=== PATIENT | male | born 1985 | race Caucasian/White ===

== ENCOUNTER 2025-02-10 08:48 | Emergency (ER) | payer MEDICAID, SELFPAY ==
--- NOTE | 2025-02-10 09:06 | XR_ITS ---
Examination: PA lateral chest 2 views TECHNIQUE: Upright lateral chest 2 views Exam date and time: February 10, 2025 0916 hours Comparison May 13, 2022 INDICATIONS: Nausea vomiting bodyaches beginning 1:00 AM this morning FINDINGS: Normal heart size. The lungs are clear. Mild osteopenia with mild thoracic dextroscoliosis IMPRESSION: No active disease
--- NOTE | 2025-02-10 09:08 | EKG_ITS ---
[facility] Test Date: 2025-02-10 Pat Name: KIEL TERRY Department: Room: - Gender: Male Medical Record Administrator: : 1985 Requested By: Salbador Amin Order Number: [id number] Reading MD: Salbador Amin Measurements Intervals Godfrey Rate: 106 P: 59 NC: 135 QRS: 70 QRSD: 104 T: 35 QT: 338 QTc: 450 Interpretive Statements SINUS TACHYCARDIA POSSIBLE LATERAL MYOCARDIAL INFARCTION , OF INDETERMINATE AGE [30 ms Q WAVE IN I/aVL/V5/V6] Compared to ECG 05/13/2022 17:27:36 Myocardial infarct finding now present T-wave abnormality no longer present /store/S0/[id number]/[id number].pdf
--- NOTE | 2025-02-10 09:08 | PD.EDURI ---
Upper Respiratory Inf. RME/HPI General Chief Complaint: Flu Like Symptoms Stated Complaint: nausea and vomiting Time Seen by Provider: 02/10/25 09:06 Source: patient Arrival date/time: 02/10/25 08:48 40-year-old male with no known medical history presents to the emergency room with a chief complaint of nausea vomiting, body aches and feeling clammy since 1 AM this morning. Mode of arrival: ambulatory Limitations: no limitations Related Data Previous Rx's ?Medication ?Instructions ?Recorded ibuprofen 600 mg tablet 600 mg PO Q6HR PRN PAIN #40 tabs 07/09/14 ibuprofen 600 mg tablet 600 mg PO Q6H #30 tabs 12/03/19 albuterol sulfate 90 mcg/actuation 1 inh inhalation QID PRN shortness 05/13/22 aerosol inhaler (ProAir HFA) of breath or wheezing #6.7 grams ibuprofen 600 mg tablet (IBU) 600 mg PO QID PRN fever #30 tabs 05/13/22 ondansetron 4 mg disintegrating 4 mg PO Q8H PRN nausea and 05/13/22 tablet vomiting #14 tabs Allergies Allergy/AdvReac Type Severity Reaction Status Date / Time amoxicillin Allergy Severe Vomiting Verified 12/24/23 18:02 hydromorphone Allergy Severe Hives Verified 12/24/23 18:02 Penicillins Allergy Severe Vomiting Verified 12/24/23 18:02 cycolobenzaprine Allergy Uncoded 02/10/25 08:51 Review of Systems Review of Systems Systems Reviewed: All systems reviewed, normal except as documented Constitutional Constitutional: Reports system reviewed and no additional complaints, except as documented, Reports body ache(s), Denies fatigue, Reports fever(s), Denies headache(s) and Reports weakness Eyes Eyes: Reports system reviewed and no additional complaints, except as documented, Denies blurry vision and Denies change in vision ENT Ears, Nose, Mouth, and Throat: Reports system reviewed and no additional complaints, except as documented, Denies otalgia, Denies headache(s), Denies nasal congestion, Denies throat swelling and Denies vertigo Cardiovascular Cardiovascular: Reports system reviewed and no additional complaints, except as documented, Denies chest pain, Denies dyspnea, Denies dyspnea on exertion and Reports rapid heart rate Respiratory Respiratory: Reports system reviewed and no additional complaints, except as documented, Denies chest congestion, Denies cough, Denies dyspnea, Denies dyspnea on exertion and Denies wheezing Gastrointestinal Gastrointestinal: Reports system reviewed and no additional complaints, except as documented, Denies abdominal pain, Denies cramping, Denies nausea and Denies vomiting Genitourinary Genitourinary: Reports system reviewed and no additional complaints, except as documented, Denies dysuria and Denies hematuria Musculoskeletal Musculoskeletal: Reports system reviewed and no additional complaints, except as documented and Denies back pain Integumentary/Breasts Skin/Breast: Reports system reviewed and no additional complaints, except as documented and Denies wounds Neurologic Neurologic: Reports system reviewed and no additional complaints, except as documented, Denies confusion, Denies headache(s), Denies lack of coordination, Denies vertigo and Reports weakness Psychiatric Psychiatric: Reports system reviewed and no additional complaints, except as documented, Denies anxiety, Denies confusion, Denies depression, Denies paranoia, Denies suicidal ideation and Denies tactile hallucinations Endocrine Endocrine: Reports system reviewed and no additional complaints, except as documented and Denies fatigue Hematologic/Lymphatic Hematologic/Lymphatic: Reports system reviewed and no additional complaints, except as documented and Denies lymphadenopathy Allergic/Immunologic Allergic/Immunologic: Reports system reviewed and no additional complaints, except as documented, Denies throat swelling, Denies urticaria and Denies wheezing ED Exam General Limitations: Present no limitations Course Quality Measures none Orders Category Date Time Status Bedside COVID-19 Antigen Test NOW Care 02/10/25 09:06 Active Bedside Influenza A&B Antigen Test NOW Care 02/10/25 09:06 Completed EKG (ED ONLY) *Do not use* NOW Care 02/10/25 09:08 Completed EKG (ED Only) Stat Exams 02/10/25 09:08 Draft XR chest 2V Stat Exams 02/10/25 09:06 Completed B-Type Natriuretic Peptide Stat Lab 02/10/25 09:49 Completed CBC Stat Lab 02/10/25 09:49 Completed CMP [Comprehensive Metabolic Panel] Stat Lab 02/10/25 09:49 Completed Drug Screen,Urine Stat Lab 02/10/25 09:40 Completed Lipase Stat Lab 02/10/25 09:49 Completed Magnesium Stat Lab 02/10/25 09:49 Completed Troponin I Stat Lab 02/10/25 09:49 Completed Urinalysis Stat Lab 02/10/25 09:40 Completed Acetaminophen Tab [Tylenol Tab] Med 02/10/25 09:06 Discontinued 650 mg PO X1 ONE Ondansetron Odt [Zofran Odt] Med 02/10/25 09:06 Discontinued 4 mg PO X1 ONE Vital Signs Vital signs: Vital Signs Temperature 97.7 F 02/10/25 09:13 Pulse Rate 108 H 02/10/25 09:13 Respiratory Rate 18 02/10/25 09:13 Blood Pressure 164/107 H 02/10/25 09:13 Pulse Oximetry (%) 100 02/10/25 09:13 Oxygen Delivery Method Room Air 02/10/25 09:13 O2 saturation within normal limits Procedures -ED EKG Interpretation #1: Date of EK02/10/25 Rate: 106 Interpretation: Reviewed by me EKG Impression: Sinus tachycardia Additional EKG comment: EKG shows sinus tachycardia [address] deviation Upper Respiratory Infection MDM Narrative MDM Narrative:: 40-year-old male with no known medical history presents to the emergency room with a chief complaint of nausea vomiting, body aches and feeling clammy since 1 AM this morning. Patient is hemodynamically stable and in no apparent distress Physical examination shows generalized bodyaches that are a 5 out of 10 throughout his whole body. The patient is also having some nausea and vomiting. The patient denies any chest pain any abdominal pain any fevers. EKG shows sinus tachycardia at [address] deviation CBC CMP troponin were all negative Patient tested positive for influenza A Patient was discharged and educated to follow-up with primary care provider in the next 24 to 48 hours and return to the emergency room for any evidence of worsening signs or symptoms Patient data External records reviewed:: [facility] previous records Clinical information provided by:: patient Social determinants that could affect healthcare access:: none Patient has the following chronic illnesses:: No chronic illness How is presenting disease/condition affected by chronic disease/condition?: no chronic disease Evaluation data The following diagnostics were reviewed and interpreted by me:: lab results and radiology exam(s) Lab and/or radiology exams considered but not ordered:: Labs and radiology exams considered in order Interpretation Summary: Chest [id number]: Normal heart size. The lungs are clear. Mild osteopenia with mild thoracic dextroscoliosis IMPRESSION: No active disease Medications / Prescriptions Medications or Prescriptions considered but not ordered:: Medication given Medication administrations:: Medication Administration History Discontinued Medications Acetaminophen (Acetaminophen 325 Mg Tablet) 650 mg PO X1 ONE Stop: 02/10/25 09:07 Last Admin: 02/10/25 09:20 Dose: 650 mg Documented By: STELLA Ondansetron HCl (Ondansetron Odt 4 Mg Tabrap) 4 mg PO X1 ONE; Protocol Stop: 02/10/25 09:07 Last Admin: 02/10/25 09:19 Dose: 4 mg Documented By: OA Medication given Consultations Consultation(s) initiated? (list below): No Diagnosis Upper Respiratory Differential Diagnosis: upper respiratory infection, viral infection, influenza and other (Chest pain/) Most likely diagnosis given after review of the tests above:: Influenza A Admission Indicated Admission indicated?: not indicated Admission Request Was there a request for admission?: No Disposition Plan Disposition Plan: Discharge Discharge Attestation Discharge Attestation: The patient and all family members were given an opportunity to ask questions and understood the discharge instructions. Discharge instructions specifically effects, indications for sooner follow up or return to the emergency department, and the expected course of current diagnosis. Patient condition: Stable Discharge Plan Plan Patient Disposition: HOME (Self Care) Disposition Comment: stable Prescriptions/Referrals Prescriptions/Med Rec: No Action ibuprofen 600 MG tablet 600 mg PO Q6HR PRN (Reason: PAIN) Qty: 40 0RF ibuprofen 600 mg tablet 600 mg PO Q6H Qty: 30 0RF ondansetron 4 mg tablet,disintegrating 4 mg PO Q8H PRN (Reason: nausea and vomiting) Qty: 14 0RF ibuprofen [IBU] 600 mg tablet 600 mg PO QID PRN (Reason: fever) Qty: 30 0RF albuterol sulfate [ProAir HFA] 90 mcg/actuation HFA aerosol inhaler 1 inh inhalation QID PRN (Reason: shortness of breath or wheezing) Qty: 6.7 0RF Referrals: No Primary/Family,Physician [Primary Care Provider] - In 1 week Problem List Clinical Impression: Influenza A Patient/Caregiver Discharge Instructions Education Materials: The Flu (Influenza), ED Influenza (Adult) Additional Instructions: Please follow-up with your primary care provider in the next 24 to 48 hours. You tested positive for influenza A. Your cardiac examination was negative for any acute findings. The treatment for this is symptom management. Please continue to take Tylenol and ibuprofen for fever management. Please increase your oral fluid intake. For any evidence of worsening signs or symptoms please return to the emergency room immediately Print Language: Portuguese Stand Alone Forms: Katharina Award Info., Patient Portal Info Letter PA/FIRE PREVENTION INSPECTOR Supervising Physician PA/FIRE PREVENTION INSPECTOR Supervising Physician: Dr. Ltuz
[2025-02-10 09:13] VITALS: BP 164/107; PULSE 108; RESP 18; TEMP 36.5; O2SAT 100; BMI 25.5
[2025-02-10] MEDS: ONDANSETRON ODT 4 MG TABRAP PO (09:19)
[2025-02-10] MEDS: ACETAMINOPHEN 325 MG TABLET 650 MG PO (09:20)
[2025-02-10 09:50] LABS: Collection Type, Urine Clean Catch; Squamous Epithelial Cell,Urine 0 /hpf (0-5)
[2025-02-10 10:02] LABS: Bilirubin,Urine Negative (Negative); Blood,Urine Negative (Negative); Clarity,Urine Clear (Clear/Hazy); Color,Urine Yellow (Lt Yel-Yel); Glucose, Urine Negative (Negative); Ketones,Urine Negative (Negative); Leukocyte Esterase,Urine Negative (Negative); Nitrite,Urine Negative (Negative); Protein,Urine Negative (Neg - Trace); RBC,Urine 2 /hpf (0-3); Specific Gravity,Urine 1.026 (1.001-1.035); Urobilinogen,Urine Negative mg/dL (0.0-1.0); WBC,Urine 1 /hpf (0-5)
[2025-02-10 10:02] LABS: Basophils % (Auto) 0 % (0-2.5); Eosinophils # (Auto) 0.1 Thou/mm3 (0.0-0.5); Eosinophils % (Auto) 1 % (0-10); Hemoglobin 15.5 g/dL (13.5-16.0); Immature Granulocytes % (Auto) 0 % (0-0); Immature Granulocytes Auto 0.01 Thou/mm3 (0.00-0.00); Lymphocytes # (Auto) 1.8 Thou/mm3 (1.0-4.8); Lymphocytes % (Auto) 29 % (10-50); Mean Corpuscular HGB Conc 35.2 g/dl (31.0-37.0); Mean Corpuscular Volume 94 fL (80-100); Monocytes # (Auto) 0.7 Thou/mm3 (0.0-0.8); Monocytes % (Auto) 11 % (0-12); Neutrophils # (Auto) 3.8 Thou/mm3 (1.8-7.7); Neutrophils % (Auto) 60 % (37-80); Nucleated Red Blood Cell % 0 /100 WBC (0); Platelet Count 258 Thou/mm3 (140-440); RDW Standard Deviation 41.1 fL (35.1-43.9); Red Blood Count 4.69 Miln/mm3 (4.50-5.90); White Blood Count 6.4 Thou/mm3 (3.8-10.6)
[2025-02-10 10:06] LABS: Amphetamine/Methamp Scrn,U Positive (Negative); Barbiturate Screen,Urine Negative (Negative); Benzodiazepines Screen,Urine Negative (Negative); Benzoylecgonine Screen, Ur Negative (Negative); Fentanyl Screen,Urine Negative (Negative); Opiate Screen,Urine Negative (Negative); THC Screen,Urine Negative (Negative)
[2025-02-10 10:21] LABS: B-Type Natriuretic Peptide < 20 pg/mL (0-100)
[2025-02-10 10:22] LABS: Alanine Aminotransferase 16 U/L (10-49); Albumin, Serum 4.6 gm/dL (3.5-5.0); Albumin/Globulin Ratio 1.8 (1.2-2.2); Alkaline Phosphatase 96 U/L (46-116); Anion Gap 8 (7-16); Aspartate Amino Transferase 14 U/L (0-34); BUN/Creatinine Ratio 12 Ratio (12-20); Bilirubin,Total 0.5 mg/dL (0.3-1.2); Blood Urea Nitrogen 13 mg/dL (9-23); Calcium 9.5 mg/dL (8.3-10.6); Calcium (Corrected) 9.5 mg/dL (8.5-10.1); Chloride 106 mMol/L (98-107); Creatinine (Component) 1.1 mg/dL (0.6-1.3); Estimated Creatinine Clearance 110.7 mL/min (>60); Globulin 2.5 gm/dL (2.3-3.5); Glucose 92 mg/dL (74-106); Lipase 50 U/L (12-53); Osmolality,Calculated 281 (275-295); Potassium 3.8 mMol/L (3.4-5.1); Sodium 141 mMol/L (136-145); Total Protein 7.1 gm/dL (5.7-8.2); Troponin I < 0.020 ng/mL (0.0-0.045); eGFR > 60 See Note
== END 2025-02-10 10:57 | disposition home or self-care (01) ==
PROVIDERS: Nurse Practitioner Family; Emergency Provider Emergency Medicine
DX: J10.1 Influenza due to other identified influenza virus with other respiratory manifestations (principal)
CPT/HCPCS: 36415; 71046; 80053; 80307; 81001; 83690; 83735; 83880; 84484; 85025; 87400; 87811; 93005; 99283; Q0162; A9270

== ENCOUNTER 2025-07-02 10:45 | Emergency (ER) | payer OTHER, SELFPAY ==
[2025-07-02 10:53] VITALS: BMI 26.7
[2025-07-02 10:57] VITALS: BP 136/95; PULSE 85; RESP 18; TEMP 36.6; O2SAT 100
--- NOTE | 2025-07-02 11:01 | XR_ITS ---
Examination: AP pelvis single view Technique one AP portable supine pelvis single view Date and time: 2024, 113 hrs. Indications: Onset pelvic pain today Findings: Hips and bones of the pelvis intact Minimal narrowing hip joints No cortical bone destruction Impression: No hip or pelvic fracture
--- NOTE | 2025-07-02 11:01 | XR_ITS ---
Examination: Lumbar spine 2 views Technique: AP lateral lumbar spine 2 views Date and time: 26/02/2025, 1136 hrs. Indications: Low back pain today. Findings: Straightening normal lumbar lordosis. Moderate disc narrowing L5-S1. No lumbar fracture. Mild lumbar spondylosis Impression: Moderate disc narrowing L5-S1
--- NOTE | 2025-07-02 11:20 | EDNOTE_ITS ---
ED Back Injury Pain RME/HPI General Chief Complaint: Abdominal Pain Stated Complaint: R AND L FLANK PAIN Time Seen by Provider: 07/02/25 10:49 Arrival date/time: 07/02/25 10:45 Limitations: no limitations RME / HPI RME / HPI Narrative: 40 year old male with history of depression, bipolar, PTSD presents to the ED [facility] for evaluation of bilateral flank pain beginning last night. Described as aching in sensation that begins in his flanks with radiation up to his shoulder blades and down both legs. Pain rated as moderate that is aggravated with laying on either side. Reportedly had made nursing staff aware at the intermediate and provided a urine sample last night; results still pending this morning. No other associated symptoms reported. Related Data Previous Rx's ?Medication ?Instructions ?Recorded ibuprofen 600 mg tablet 600 mg PO Q6HR PRN PAIN #40 tabs 07/09/14 ibuprofen 600 mg tablet 600 mg PO Q6H #30 tabs 12/03 albuterol sulfate 90 mcg/actuation 1 inh inhalation QI D PRN shortness 05/13/22 aerosol inhaler (ProAir HFA) of breath or wheezing #6. 7 grams ibuprofen 600 mg tablet (IBU) 600 mg PO QID PRN fever #30 tabs 05/13/22 ondansetron 4 mg disintegrating 4 mg PO Q8H PRN nausea and 05/13/22 tablet vomiting #14 tabs ibuprofen 600 mg tablet 600 mg PO Q6H PRN pain #20 t abs 07/02/25 Allergies Allergy/AdvReac Type Severity Reaction Status Date / Time amoxicillin Allergy Severe Vomiting Verified 07/02/25 10:57 hydromorphone Allergy Severe Hives Verified 07/02/25 10:57 Penicillins Allergy Severe Vomiting Verified 07/02/25 10:57 cycolobenzaprine Allergy Uncoded 02/10/25 08:51 Review of Systems Review of Systems Systems Reviewed: All systems reviewed, normal except as documented Past Medical History Past Medical History CARDIAC: Positive Cardiac Disorders, Myocardial Infarction and Cardiac Arrhythmia; Negative Congestive Heart Failure RESPIRATORY: Negative Chronic Obstructive Pulmonary Disease (COPD) GENITOURINARY: Negative Renal Disease ENDOCRINE: Negative Diabetes Mellitus Type 1 or Diabetes Mellitus Type 2 Social History SMOKING STATUS: Former smoker ED Exam General Limitations: Present no limitations General appearance: Present alert and in no apparent distress Head Head exam: Present atraumatic, normocephalic and normal inspection Eye Eye exam: Present normal appearance, PERRL and EOMI ENT ENT exam: Present normal exam, normal oropharynx and mucous membranes moist Neck Neck exam: Present normal inspection, full ROM and trachea midline Chest Chest inspection: Present normal inspection and symmetric chest wall rise Respiratory Respiratory exam: Present normal lung sounds bilaterally Cardiovascular Cardiovascular exam: Present regular rate, normal rhythm and normal heart sounds Abdominal Exam Abdominal exam: Present soft and normal bowel sounds Extremities Exam Extremities exam: Present normal inspection and full ROM Back Exam Back exam: Present normal inspection and full ROM Neurological Exam Neurological exam: Present alert, oriented X3 and CN II-XII intact Psychiatric Psychiatric exam: Present normal affect and normal mood Skin Skin exam: Present warm, dry, intact and normal color Course Quality Measures none Orders Category Date Time Status XR lumbar spine 2-3V Stat Exams 07/02/25 11:01 Completed XR pelvis 1-2V Stat Exams 07/02/25 11:01 Completed BMP [Basic Metabolic Panel] Stat Lab 07/02/25 11:17 Completed CBC Stat Lab 07/02/25 11:17 Completed Urinalysis, C/S if Indicated Stat Lab 07/02/25 11:15 Completed Ibuprofen Tab [Motrin Tab] Med 07/02/25 11:01 Discontinued 600 mg PO X1 ONE Vital Signs Vital signs: Vital Signs Temperature 97.8 F 07/02/25 10:57 Pulse Rate 85 07/02/25 10:57 Respiratory Rate 18 07/02/25 10:57 Blood Pressure 136/95 H 07/02/25 10:57 Pulse Oximetry (%) 100 07/02/25 10:57 Oxygen Delivery Method Room Air 07/02/25 10:57 Pulse ox is 100% on room air which is adequate. Back Pain / Injury MDM Narrative MDM Narrative:: Janice Manzano am scribing for and in the presence of Dr. De La Rosa. Patient data External records reviewed:: [facility] previous records (I reviewed ED visit on 02/10/2025 ) Clinical information provided by:: patient and law enforcement Social determinants that could affect healthcare access:: housing (Currently incarcerated ) Patient has the following chronic illnesses:: depression, bipolar, PTSD, previous suicide attempt by overdose in 2023. How is presenting disease/condition affected by chronic disease/condition?: no chronic disease Evaluation data The following diagnostics were reviewed and interpreted by me:: lab results and radiology exam(s) Lab and/or radiology exams considered but not ordered:: None Interpretation Summary: Ordering Physician: Jaswinder De La Rosa MD Date of Service: 07/02/25 Procedure(s): XR lumbar spine 2-3V Accession Number(s): [id number] cc: Adam Lazaro MD; NO PRIMARY/FAMILY,PHYSICIAN; Jaswinder De La Rosa MD~ Examination: Lumbar spine 2 views Technique: AP lateral lumbar spine 2 views Date and time: 26/02/2025, 1136 hrs. Indications: Low back pain today. Findings: Straightening normal lumbar lordosis. Moderate disc narrowing L5-S1. No lumbar fracture. Mild lumbar spondylosis Impression: Moderate disc narrowing L5-S1 Dictated By: Adam Lazaro MD Signed By: <Electronically signed by Adam Lazaro MD in OV> 07/02/25 1411 Ordering Physician: Jaswinder De La Rosa MD Date of Service: 07/02/25 Procedure(s): XR pelvis 1-2V Accession Number(s): [id number] cc: Adam Lazaro MD; NO PRIMARY/FAMILY,PHYSICIAN; Jaswinder De La Rosa MD~ Examination: AP pelvis single view Technique one AP portable supine pelvis single view Date and time: 2024, 1133 hrs. Indications: Onset pelvic pain today Findings: Hips and bones of the pelvis intact Minimal narrowing hip joints No cortical bone destruction Impression: No hip or pelvic fracture Dictated By: Adam Lazaro MD Signed By: <Electronically signed by Adam Lazaro MD in OV> 07/02/25 1412 Medications / Prescriptions Medications or Prescriptions considered but not ordered:: None Medication administrations:: Medication Administration History Discontinued Medications Ibuprofen (Ibuprofen Tab 600 Mg Tablet) 600 mg PO X1 ONE Stop: 07/02/25 11:02 Last Admin: 07/02/25 11:22 Dose: 600 mg Documented By: AA See above Consultations Consultation(s) initiated? (list below): No Diagnosis Most likely diagnosis given after review of the tests above:: Back pain Admission Indicated Admission indicated?: not indicated Admission Request Was there a request for admission?: No Disposition Plan Disposition Plan: Discharge Discharge Attestation Discharge Attestation: The patient and all family members were given an opportunity to ask questions and understood the discharge instructions. Discharge instructions specifically effects, indications for sooner follow up or return to the emergency department, and the expected course of current diagnosis. Patient condition: Stable Discharge Plan Plan Patient Disposition: Nursing Home/Court/Law Discharge Disposition comment: Stable for discharge home Patient condition on transfer: Stable Prescriptions/Referrals Prescriptions/Med Rec: New ibuprofen 600 mg tablet 600 mg PO Q6H PRN (Reason: pain) Qty: 20 0RF No Action ibuprofen 600 MG tablet 600 mg PO Q6HR PRN (Reason: PAIN) Qty: 40 0RF ibuprofen 600 mg tablet 600 mg PO Q6H Qty: 30 0RF ondansetron 4 mg tablet,disintegrating 4 mg PO Q8H PRN (Reason: nausea and vomiting) Qty: 14 0RF ibuprofen [IBU] 600 mg tablet 600 mg PO QID PRN (Reason: fever) Qty: 30 0RF albuterol sulfate [ProAir HFA] 90 mcg/actuation HFA aerosol inhaler 1 inh inhalation QID PRN (Reason: shortness of breath or wheezing) Qty: 6.7 0RF Referrals: [facility] [Provider Group] - In 1 week Problem List Clinical Impression: Back pain Patient/Caregiver Discharge Instructions Discharge Activity: activity as tolerated Other Activity Instructions:: As tolerated Diet Instructions: No restrictions Education Materials: Back Basics: A Healthy Spine, ED Back Care Tips, ED Back Pain (Acute or Chronic) Additional Instructions: Today you were seen in the emergency department for lower back pain. The x-ray of your lower back as well as your pelvis are normal. Your blood work is normal, kidneys are functioning normally and your urinalysis shows no infection or signs of renal stones. I have written a prescription for 600 mg ibuprofens which are waiting for you at your normal pharmacy. Please take these up to 4 times a day for pain. If you feel like you are worsening please come back to the emergency department and we will help you. Otherwise you should follow-up with your primary care doctor or in the family [facility] care clinic within the next several days Print Language: Nepali Stand Alone Forms: Katharina Award Info., Patient Portal Info Letter
[2025-07-02] MEDS: IBUPROFEN TAB 600 MG TABLET PO (11:22)
[2025-07-02 11:31] LABS: Collection Type, Urine Clean Catch; Squamous Epithelial Cell,Urine 0 /hpf (0-5)
[2025-07-02 11:36] LABS: Basophils # (Auto) 0.0 Thou/mm3 (0.0-0.2); Basophils % (Auto) 0 % (0-2.5); Eosinophils # (Auto) 0.1 Thou/mm3 (0.0-0.5); Eosinophils % (Auto) 1 % (0-10); Hematocrit 43.1 % (41.0-53.0); Hemoglobin 15.1 g/dL (13.5-16.0); Immature Granulocytes Auto 0.01 Thou/mm3 (0.00-0.00); Lymphocytes # (Auto) 1.7 Thou/mm3 (1.0-4.8); Lymphocytes % (Auto) 31 % (10-50); Mean Corpuscular HGB Conc 35.0 g/dl (31.0-37.0); Mean Corpuscular Hemoglobin 33.0 pg (25.0-35.0); Mean Corpuscular Volume 94 fL (80-100); Monocytes # (Auto) 0.6 Thou/mm3 (0.0-0.8); Monocytes % (Auto) 10 % (0-12); Neutrophils # (Auto) 3.2 Thou/mm3 (1.8-7.7); Neutrophils % (Auto) 57 % (37-80); Nucleated Red Blood Cell # 0.00 Thou/mm3 (0.00-0.00); Nucleated Red Blood Cell % 0 /100 WBC (0); Platelet Count 272 Thou/mm3 (140-440); RDW Standard Deviation 39.8 fL (35.1-43.9); Red Blood Count 4.58 Miln/mm3 (4.50-5.90); White Blood Count 5.6 Thou/mm3 (3.8-10.6)
[2025-07-02 11:40] LABS: Bilirubin,Urine Negative (Negative); Blood,Urine Negative (Negative); Clarity,Urine Clear (Clear/Hazy); Color,Urine Colorless (Lt Yel-Yel); Culture Indicated,Urine Not Indicated; Glucose, Urine Negative (Negative); Ketones,Urine Negative (Negative); Leukocyte Esterase,Urine Negative (Negative); Nitrite,Urine Negative (Negative); PH,Urine 7.0 (5.0-7.0); Protein,Urine Negative (Neg - Trace); RBC,Urine < 1 /hpf (0-3); Specific Gravity,Urine 1.009 (1.001-1.035); Urobilinogen,Urine Negative mg/dL (0.0-1.0); WBC,Urine 1 /hpf (0-5)
[2025-07-02 11:52] LABS: Anion Gap 9 (7-16); BUN/Creatinine Ratio 9 Ratio (12-20); Blood Urea Nitrogen 9 mg/dL (9-23); Calcium 9.8 mg/dL (8.3-10.6); Carbon Dioxide 27.0 mMol/L (20.0-31.0); Chloride 104 mMol/L (98-107); Creatinine (Component) 1.0 mg/dL (0.6-1.3); Estimated Creatinine Clearance 121.8 mL/min (>60); Glucose 103 mg/dL (74-106); Osmolality,Calculated 278 (275-295); Potassium 4.2 mMol/L (3.4-5.1); Sodium 140 mMol/L (136-145); eGFR > 60 See Note
== END 2025-07-02 12:17 ==
LOC: SERX 12:14
PROVIDERS: Emergency Provider Emergency Medicine
DX: M48.061 Spinal stenosis, lumbar region without neurogenic claudication (principal); F31.9 Bipolar disorder, unspecified
CPT/HCPCS: 36415; 72100; 72170; 80048; 81001; 85025; 99283; A9270